=== PATIENT | female | born 1930 | race Caucasian/White ===

== ENCOUNTER → 2016-12-01 | Outpatient (CLI) | payer MEDICARE, BC ==
[~2016-12-01] MED LIST: ASPIRN; BYST10TA2 PO; CEPHALEXIN; CLON0.5T PO; KCL20 PO; PROPRANOLOL; VALSARTAN/HCTZ
[2016-12-01 13:24] LABS: AUTOMATED NEUTROPHIL # 2.3 TH/MM3 (1.8-7.7); BASOPHIL % 0.6 % (0.0-2.0); EOSINOPHIL # 0.1 TH/MM3 (0-0.4); HEMATOCRIT 42.6 % (35.0-46.0); HEMO FLAGS DIFF FINAL; LYMPH % 29.1 % (9.0-44.0); LYMPHOCYTE # 1.1 TH/MM3 (1.0-4.8); MEAN CELL VOLUME 92.3 FL (80.0-100.0); MEAN CORPUSCULAR HEMOGLOBIN 31.1 PG (27.0-34.0); MEAN CORPUSCULAR HGB CONC 33.7 % (32.0-36.0); MONO % 8.8 % (0.0-8.0); NEUT % 59.5 % (16.0-70.0); PLATELET COUNT 128 TH/MM3 (150-450); RED BLOOD COUNT 4.61 MIL/MM3 (4.00-5.30); RED CELL DISTRIBUTION WIDTH 13.5 % (11.6-17.2); WHITE BLOOD COUNT 3.9 TH/MM3 (4.0-11.0)
[2016-12-01 14:02] LABS: ALKALINE PHOSPHATASE 91 U/L (45-117); ALT (GPT) 15 U/L (10-53); ANION GAP 7 MEQ/L (5-15); AST (GOT) 16 U/L (15-37); BLOOD UREA NITROGEN 10 MG/DL (7-18); CHLORIDE 104 MEQ/L (98-107); GLOMERULAR FILTRATION RATE 80 ML/MIN (>89); GLUCOSE,FASTING 119 MG/DL (74-99); HDL CHOLESTEROL 63.5 MG/DL (40.0-60.0); LDL CHOLESTEROL 98 MG/DL (0-99); POTASSIUM 4.6 MEQ/L (3.5-5.1); SODIUM (NA) 143 MEQ/L (136-145); TOTAL BILIRUBIN ADULT 1.2 MG/DL (0.2-1.0)
[2016-12-01 14:08] LABS: HEMOGLOBIN A1a 0.6 %; HEMOGLOBIN A1b 1.5 %; HEMOGLOBIN Ao 86.2 %; HEMOGLOBIN P3 3.5 %
== END ==
LOC: PLAB 08:17
PROVIDERS: ATTEND Family Medicine
DX: I10 Essential (primary) hypertension (principal); R53.81 Other malaise; R73.01 Impaired fasting glucose; E78.4 Other hyperlipidemia
CPT/HCPCS: 36415; 80053; 80061; 83036; 84443; 85025

== ENCOUNTER 2017-09-17 14:54 | Emergency (ER) | payer MEDICARE, BC ==
[~2017-09-17] VITALS: Ht 165.1 cm; Wt 73.0 kg
[2017-09-17 14:57] VITALS: BP 149/76; PULSE 75; RESP 16; TEMP 98.2; O2SAT 98
[2017-09-17 15:18] LABS: BLOOD, URINE TRACE (NEG); GLUCOSE,URINE NEG (NEG); KETONE, URINE NEG (NEG); NITRITE,URINE NEG (NEG); PH, URINE 6.5 (5.0-8.5)
[2017-09-17 15:23] LABS: RBC, URINE 0-3 /hpf (0-3); URINE COLOR YELLOW (YELLW/STRAW); WBC, URINE 0-2 /hpf (0-5)
[2017-09-17] MEDS ORDERED: PROP10TA6 PO (15:23)
[2017-09-17] MEDS ORDERED: CLON0.5T PO (15:23)
[2017-09-17] MEDS ORDERED: KLOR10TA PO (15:23)
[2017-09-17] MEDS ORDERED: BYST10TA2 PO (15:23)
[2017-09-17] MEDS ORDERED: VALS320T6 PO (15:23)
[2017-09-17 15:24] LABS: COMMENT (UR) CULT NOT INDICATED; CULTURE IF INDICATED CULT NOT INDICATED
[2017-09-17] MEDS ORDERED: SODIUM CHLORIDE 0.9% FLUSH 10 ML FLUSH IV FLUSH PRN (15:30)
[2017-09-17 15:39] LABS: AUTOMATED NEUTROPHIL # 5.5 TH/MM3 (1.8-7.7); BASOPHIL % 0.3 % (0.0-2.0); EOSINOPHIL # 0.1 TH/MM3 (0-0.4); EOSINOPHIL % 1.5 % (0.0-4.0); HEMATOCRIT 39.8 % (35.0-46.0); HEMO FLAGS DIFF FINAL; LYMPH % 14.2 % (9.0-44.0); LYMPHOCYTE # 1.1 TH/MM3 (1.0-4.8); MEAN CELL VOLUME 90.9 FL (80.0-100.0); MEAN CORPUSCULAR HEMOGLOBIN 30.4 PG (27.0-34.0); MEAN CORPUSCULAR HGB CONC 33.4 % (32.0-36.0); MONO % 9.3 % (0.0-8.0); NEUT % 74.7 % (16.0-70.0); PLATELET COUNT 242 TH/MM3 (150-450); RED BLOOD COUNT 4.38 MIL/MM3 (4.00-5.30); RED CELL DISTRIBUTION WIDTH 12.4 % (11.6-17.2); WHITE BLOOD COUNT 7.4 TH/MM3 (4.0-11.0)
--- NOTE | 2017-09-17 15:59 | PD ---
HPI Chief Complaint: Complaint Time Seen by Provider: 15:14 Travel History International Travel<30 days: No Contact w/Intl Traveler<30days: No Traveled to known affect area: No History of Present Illness HPI Patient is an 87-year-old female presents to emergency department for evaluation of dysuria. Patient states been going on for the past week. 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 Dr. Maldonado did this in 2011. Patient also states she's been feeling weak having intermittent chills. States that she went to her primary care physician and was put on Macrobid and still is having the dysuria. Has not followed up with Dr. Maldonado nor urologist in this time. States some minimal super pubic abdominal discomfort. No vaginal discharge no vaginal bleeding. PFSH Past Medical History Hx Anticoagulant Therapy: Yes (BABY ASA DAILY) Arthritis: Yes Cancer: Yes (SKIN CANCER) Cardiovascular Problems: Yes (HTN) Chemotherapy: No Diabetes: Yes (BORDERLINE) Patient Takes Glucophage: No Diminished Hearing: No Endocrine: No Gastrointestinal Disorders: Yes GERD: Yes Glaucoma: No Genitourinary: Yes (CHRONIC BLADDER INFECTIONS) Hepatitis: No Hiatal Hernia: Yes Hypertension: Yes Immune Disorder: No Implanted Vascular Access Dvce: Yes Kidney Stones: Yes Medical other: No Musculoskeletal: No Neurologic: No Psychiatric: No Reproductive: No Respiratory: No Immunizations Current: Yes Radiation Therapy: No Thyroid Disease: No ?: Not Past Surgical History Abdominal Surgery: Yes (UMBILICAL HERNIA, COLON SURGERY) AICD: No Body Medical Devices: MICHAEL EYE LENS Cardiac Surgery: No Cholecystectomy: Yes Ear Surgery: No Endocrine Surgery: No Eye Surgery: No Genitourinary Surgery: No Gynecologic Surgery: No Joint Replacement: No Neurologic Surgery: No Oral Surgery: No Pacemaker: No Thoracic Surgery: No Other Surgery: Yes (HERNIA REPAIR) Social History Alcohol Use: Yes (scotch and h20 one daily) Tobacco Use: No Substance Use: No Allergies-Medications (Allergen,Severity, Reaction): Coded Allergies: No Known Allergies (Verified Adverse Reaction, Unknown, 09/17/17) Reported Meds & Prescriptions Reported Meds & Active Scripts Active Pyridium (Phenazopyridine HCl) 100 Mg Tab 100 Mg PO Q8H PRN Reported Bystolic (Nebivolol) 10 Mg Tab 10 Mg PO DAILY Klor-Con 10 (Potassium Chloride) 10 Meq Tab 10 Meq PO BID Clonazepam 0.5 Mg Tab 0.5 Mg PO BID Valsartan-Hydrochlorothiazide 320-25 Mg Tab 1 Tab PO DAILY Propranolol (Propranolol HCl) 10 Mg Tab 30 Mg PO DAILY Review of Systems Except as stated in HPI: all other systems reviewed are Neg Physical Exam Narrative GENERAL: Well-developed well-nourished no obvious distress. Has a stuttering speech pattern which she states been present all of her life. SKIN: Focused skin assessment warm/dry. HEAD: Atraumatic. Normocephalic. EYES: Pupils equal and round. No scleral icterus. No injection or drainage. ENT: No nasal bleeding or discharge. Mucous membranes pink and moist. NECK: Trachea midline. No JVD. CARDIOVASCULAR: Regular rate and rhythm. No murmur appreciated. RESPIRATORY: No accessory muscle use. Clear to auscultation. Breath sounds equal bilaterally. GASTROINTESTINAL: Abdomen soft, non-tender, nondistended. Hepatic and splenic margins not palpable. No rebound no percussive tenderness, no tenderness suprapubic region MUSCULOSKELETAL: No obvious deformities. No clubbing. No cyanosis. No edema. NEUROLOGICAL: Awake and alert. No obvious cranial nerve deficits. Motor grossly within normal limits. Abnormal speech as above. PSYCHIATRIC: Appropriate mood and affect; insight and judgment normal. Data Data Last Documented VS Vital Signs Date Time Temp Pulse Resp B/P (MAP) Pulse Ox O2 Delivery O2 Flow Rate FiO2 09/17/17 15:12 16 09/17/17 14:57 98.2 75 149/76 (100) 98 Orders Orders Urinalysis - C+S If Indicated (09/17/17 15:03) Complete Blood Count With Diff (09/17/17 15:24) Comprehensive Metabolic Panel (09/17/17 15:24) Iv Access Insert/Monitor (09/17/17 15:24) Sodium Chloride 0.9% Flush (Ns Flush) (09/17/17 15:30) Ed Discharge Order (09/17/17 16:16) Labs Laboratory Tests Test 09/17/17 15:09 09/17/17 15:33 Urine Color YELLOW Urine Turbidity CLEAR Urine pH 6.5 Urine Specific [place] 1.006 Urine Protein NEG mg/dL Urine Glucose (UA) NEG mg/dL Urine Ketones NEG mg/dL Urine Occult Blood TRACE Urine Nitrite NEG Urine Bilirubin NEG Urine Leukocyte Esterase NEG Urine RBC 0-3 /hpf Urine WBC 0-2 /hpf Urine Squamous Epithelial Cells 6-8 /hpf Microscopic Urinalysis Comment CULT NOT INDICATED White Blood Count 7.4 TH/MM3 Red Blood Count 4.38 MIL/MM3 Hemoglobin 13.3 GM/DL Hematocrit 39.8 % Mean Corpuscular Volume 90.9 FL Mean Corpuscular Hemoglobin 30.4 PG Mean Corpuscular Hemoglobin Concent 33.4 % Red Cell Distribution Width 12.4 % Platelet Count 242 TH/MM3 Mean Platelet Volume 6.6 FL Neutrophils (%) (Auto) 74.7 % Lymphocytes (%) (Auto) 14.2 % Monocytes (%) (Auto) 9.3 % Eosinophils (%) (Auto) 1.5 % Basophils (%) (Auto) 0.3 % Neutrophils # (Auto) 5.5 TH/MM3 Lymphocytes # (Auto) 1.1 TH/MM3 Monocytes # (Auto) 0.7 TH/MM3 Eosinophils # (Auto) 0.1 TH/MM3 Basophils # (Auto) 0.0 TH/MM3 CBC Comment DIFF FINAL Differential Comment Blood Urea Nitrogen 6 MG/DL Creatinine 0.57 MG/DL Random Glucose 113 MG/DL Total Protein 6.6 GM/DL Albumin 3.1 GM/DL Calcium Level 8.7 MG/DL Alkaline Phosphatase 114 U/L Aspartate Amino Transf (AST/SGOT) 16 U/L Alanine Aminotransferase (ALT/SGPT) 20 U/L Total Bilirubin 0.9 MG/DL Sodium Level 134 MEQ/L Potassium Level 3.7 MEQ/L Chloride Level 96 MEQ/L Carbon Dioxide Level 33.1 MEQ/L Anion Gap 5 MEQ/L Estimat Glomerular Filtration Rate 100 ML/MIN [facility] Medical Decision Making Medical Screen Exam Complete: Yes Emergency Medical Condition: Yes Differential Diagnosis UTI, pyelonephritis unlikely, sepsis unlikely, bladder spasm. Narrative Course Patient roomed emergency department, appears well and in no distress. Basic labs are reassuring, UA is also reassuring. As possible that she is having some residual bladder irritation. With her history of enterovesicular fistula had recommended that she follow up with Dr. Maldonado her surgeon for another evaluation. Also recommend that she follow up with her urologist for consideration of cystoscopy. However both these can be done outpatient and she appears well and in no distress. Recommended finishing her antibiotics if there is any left and follow-up with Dr. Marx by phone today. She stable for discharge discussed return to ED criteria. Diagnosis Primary Impression: Dysuria Referrals: Umang Maldonado MD,Rochelle CLAROS Patient Instructions: Dysuria (GEN), General Instructions Med/Other Pt SpecificInfo: Prescription(s) given Scripts Phenazopyridine (Pyridium) 100 Mg Tab 100 MG PO Q8H Y for DYSURIA, #20 TAB 0 Refills Prov: Tony Xavier MD 09/17/17 Disposition: 01 DISCHARGE HOME Condition: Stable Tony Xavier MD Sep 17, 2017 15:59
[2017-09-17 16:00] LABS: CHLORIDE 96 MEQ/L (98-107); POTASSIUM 3.7 MEQ/L (3.5-5.1); SODIUM (NA) 134 MEQ/L (136-145)
[2017-09-17 16:04] LABS: ANION GAP 5 MEQ/L (5-15); BICARBONATE 33.1 MEQ/L (21.0-32.0); BLOOD UREA NITROGEN 6 MG/DL (7-18)
[2017-09-17 16:07] LABS: ALT (GPT) 20 U/L (10-53); AST (GOT) 16 U/L (15-37); GLOMERULAR FILTRATION RATE 100 ML/MIN (>89)
[2017-09-17 16:08] LABS: TOTAL BILIRUBIN ADULT 0.9 MG/DL (0.2-1.0)
[2017-09-17 16:09] LABS: ALKALINE PHOSPHATASE 114 U/L (45-117)
[2017-09-17] MEDS ORDERED: PHEN0.4T PO (16:16)
== END 2017-09-17 16:36 | disposition home or self-care (01) ==
LOC: PHED 14:54
DX: R30.0 Dysuria (principal); I10 Essential (primary) hypertension; Z87.442 Personal history of urinary calculi; Z79.82 Long term (current) use of aspirin
CPT/HCPCS: 80053; 81001; 85025; 99283

== ENCOUNTER 2018-01-03 15:00 | Emergency (ER) | payer MEDICARE, BC ==
[~2018-01-03] VITALS: Ht 165.1 cm; Wt 73.1 kg
[~2018-01-03 15:00] MED LIST changes: -ASPIRN; -CEPHALEXIN; -KCL20 PO; +KLOR10TA PO; +PHEN0.4T PO; +PROP10TA6 PO; -PROPRANOLOL; +VALS320T6 PO; -VALSARTAN/HCTZ
[2018-01-03 15:29] VITALS: BP 115/73; PULSE 70; RESP 16; TEMP 98.3; O2SAT 93
--- NOTE | 2018-01-03 17:11 | PD ---
HPI Chief Complaint: Syncope/Near-Syncope Time Seen by Provider: 16:56 Travel History International Travel<30 days: No Contact w/Intl Traveler<30days: No Traveled to known affect area: No History of Present Illness HPI 87-year-old female complains of syncope and left-sided facial injury. Patient states that she was walking and then passed out completely. Patient states that she does not know how long she passed out. Patient states that just a short moment. Patient denies any headache. Patient complains of abrasion the left side of face. Patient denies any visual change. Patient denies any neck pain. Patient denies any chest pain shortness of breath. Patient denies abdominal pain. Patient denies any focal weakness or numbness of the extremity. Patient states that she had a syncopal episode about 2 years ago. 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 Patient take aspirin daily. Patient has history of hypertension and diet-controlled diabetes. Patient denies any history of hyperlipidemia. Patient is non-smoker. Patient denies history of CVA. Patient denies history of seizure. Patient states that she has been eating well. Patient denies any palpitation prior to syncope. Patient states that she is up-to-date with TD booster. PFSH Past Medical History Hx Anticoagulant Therapy: Yes (asa 81mg) Arthritis: Yes Cancer: Yes (SKIN CANCER) Cardiovascular Problems: Yes (htn on meds) Chemotherapy: No Diabetes: Yes (type 2) Diminished Hearing: No Endocrine: No Gastrointestinal Disorders: Yes GERD: Yes Glaucoma: No Genitourinary: Yes (CHRONIC BLADDER INFECTIONS) Hepatitis: No Hiatal Hernia: Yes Hypertension: Yes Immune Disorder: No Implanted Vascular Access Dvce: Yes Kidney Stones: Yes Musculoskeletal: No Neurologic: No Psychiatric: No Reproductive: No Respiratory: No Immunizations Current: Yes Radiation Therapy: No Thyroid Disease: No ?: Not Past Surgical History Abdominal Surgery: Yes (UMBILICAL HERNIA, COLON SURGERY) AICD: No Body Medical Devices: MICHAEL EYE LENS Cardiac Surgery: No Cholecystectomy: Yes Ear Surgery: No Endocrine Surgery: No Eye Surgery: No Genitourinary Surgery: No Gynecologic Surgery: No Joint Replacement: No Neurologic Surgery: No Oral Surgery: No Pacemaker: No Thoracic Surgery: No Other Surgery: Yes (HERNIA REPAIR) Social History Alcohol Use: Yes (scotch and h20 one daily) Tobacco Use: No Substance Use: No Allergies-Medications (Allergen,Severity, Reaction): Coded Allergies: No Known Allergies (Verified Adverse Reaction, Unknown, 01/03/18) Reported Meds & Prescriptions Reported Meds & Active Scripts Active Reported Aspirin 81 Mg Chew 81 Mg CHEW DAILY Bystolic (Nebivolol) 10 Mg Tab 10 Mg PO DAILY Klor-Con 10 (Potassium Chloride) 10 Meq Tab 10 Meq PO BID Clonazepam 0.5 Mg Tab 0.5 Mg PO BID Valsartan-Hydrochlorothiazide 320-25 Mg Tab 1 Tab PO DAILY Propranolol (Propranolol HCl) 10 Mg Tab 30 Mg PO DAILY Review of Systems General / Constitutional: No: Fever Eyes: No: Visual changes HENT: No: Headaches Cardiovascular: No: Chest Pain or Discomfort Respiratory: No: Shortness of Breath Gastrointestinal: No: Abdominal Pain Genitourinary: No: Dysuria Musculoskeletal: No: Pain Skin: No Rash Neurologic: Positive: Syncope, No: Weakness Psychiatric: No: Depression Endocrine: No: Polydipsia Hematologic/Lymphatic: No: Easy Bruising Physical Exam Narrative GENERAL: Well-nourished, well-developed patient. SKIN: Focused skin assessment warm/dry. HEAD: Normocephalic. Patient has small abrasion to left cheek area. Mild soft tissue swelling tenderness on palpation of the left cheek. EYES: No scleral icterus. No injection or drainage. Pupils 1.5 mm equal reactive. NECK: Supple, trachea midline. No JVD or lymphadenopathy. No neck tenderness on palpation. CARDIOVASCULAR: Regular rate and rhythm without murmurs, gallops, or rubs. RESPIRATORY: Breath sounds equal bilaterally. No accessory muscle use. GASTROINTESTINAL: Abdomen soft, non-tender, nondistended. MUSCULOSKELETAL: No cyanosis, or edema. BACK: Nontender without obvious deformity. No CVA tenderness. Neurologic exam: Patient is awake and alert oriented 3. Patient moves all extremity well. No obvious focal neurological deficit. Data Data Last Documented VS Vital Signs Date Time Temp Pulse Resp B/P (MAP) Pulse Ox O2 Delivery O2 Flow Rate FiO2 01/03/18 15:29 98.3 70 16 115/73 (87) 93 Orders Orders Electrocardiogram (01/03/18 17:04) Complete Blood Count With Diff (01/03/18 17:04) Comprehensive Metabolic Panel (01/03/18 17:04) Prothrombin Time / Inr (Pt) (01/03/18 17:04) Act Partial Throm Time (Ptt) (01/03/18 17:04) Urinalysis - C+S If Indicated (01/03/18 17:04) Thyroid Stimulating Hormone (01/03/18 17:04) Chest, Single Ap (01/03/18 17:04) Ct Brain W/O Iv Contrast(Rout) (01/03/18 17:04) Iv Access Insert/Monitor (01/03/18 17:04) Ecg Monitoring (01/03/18 17:04) Oximetry (01/03/18 17:04) Ct Facial Bones W/O Iv Cont (01/03/18 17:04) Urine Culture (01/03/18 18:20) Labs Laboratory Tests Test 01/03/18 17:41 01/03/18 18:20 White Blood Count 5.8 TH/MM3 Red Blood Count 4.96 MIL/MM3 Hemoglobin 15.2 GM/DL Hematocrit 45.3 % Mean Corpuscular Volume 91.5 FL Mean Corpuscular Hemoglobin 30.6 PG Mean Corpuscular Hemoglobin Concent 33.5 % Red Cell Distribution Width 13.9 % Platelet Count 160 TH/MM3 Mean Platelet Volume 7.8 FL Neutrophils (%) (Auto) 57.4 % Lymphocytes (%) (Auto) 32.8 % Monocytes (%) (Auto) 8.2 % Eosinophils (%) (Auto) 1.1 % Basophils (%) (Auto) 0.5 % Neutrophils # (Auto) 3.3 TH/MM3 Lymphocytes # (Auto) 1.9 TH/MM3 Monocytes # (Auto) 0.5 TH/MM3 Eosinophils # (Auto) 0.1 TH/MM3 Basophils # (Auto) 0.0 TH/MM3 CBC Comment DIFF FINAL Differential Comment Prothrombin Time 10.7 SEC Prothromb Time International Ratio 1.1 RATIO Activated Partial Thromboplast Time 25.9 SEC Blood Urea Nitrogen 14 MG/DL Creatinine 0.64 MG/DL Random Glucose 96 MG/DL Total Protein 6.3 GM/DL Albumin 3.4 GM/DL Calcium Level 8.9 MG/DL Alkaline Phosphatase 93 U/L Aspartate Amino Transf (AST/SGOT) 23 U/L Alanine Aminotransferase (ALT/SGPT) 24 U/L Total Bilirubin 1.2 MG/DL Sodium Level 140 MEQ/L Potassium Level 3.8 MEQ/L Chloride Level 103 MEQ/L Carbon Dioxide Level 28.3 MEQ/L Anion Gap 9 MEQ/L Estimat Glomerular Filtration Rate 88 ML/MIN Thyroid Stimulating Hormone 3rd Gen 1.210 uIU/ML Urine Color YELLOW Urine Turbidity CLEAR Urine pH 5.0 Urine Specific [place] 1.020 Urine Protein NEG mg/dL Urine Glucose (UA) NEG mg/dL Urine Ketones NEG mg/dL Urine Occult Blood TRACE Urine Nitrite NEG Urine Bilirubin NEG Urine Urobilinogen 0.2 MG/DL Urine Leukocyte Esterase TRACE Urine RBC 3-5 /hpf Urine WBC 6-8 /hpf Urine Squamous Epithelial Cells > 8 /hpf Urine Bacteria MOD /hpf Microscopic Urinalysis Comment CULTURE INDICATED MDM Medical Decision Making Medical Screen Exam Complete: Yes Emergency Medical Condition: Yes Interpretation(s) Last Impressions Maxillofacial CT 01/03/181703 Signed Impressions: Service Date/Time: December 17:43 - CONCLUSION: 1. No acute facial bone fractures. 2. Left maxillary sinus mucosal disease. David Tompkins MD Head CT 01/03/181703 Signed Impressions: Service Date/Time: December 17:43 - CONCLUSION: 1. Senescent changes without acute intracranial abnormality. David Tompkins MD Chest X-Ray 01/03/181703 Signed Impressions: Service Date/Time: December 17:14 - CONCLUSION: No acute disease. Clement Youssef MD 1842 PM. CBC within normal limits. CMP within normal limits. UA positive WBC and bacteria. EKG shows sinus rhythm nonspecific ST-T wave change. Differential Diagnosis Differential diagnosis including vasovagal reaction, arrhythmia, electrolyte imbalance, dehydration, TIA, CVA. Narrative Course 87-year-old female with syncope and left-sided facial injury. Bactrim DS, 1 tablet p.o. given. Diagnosis Primary Impression: Syncope Qualified Codes: R55 - Syncope and collapse Additional Impressions: Facial abrasion Qualified Codes: S00.81XA - Abrasion of other part of head, initial encounter UTI (urinary tract infection) Qualified Codes: N30.00 - Acute cystitis without hematuria Patient Instructions: General Instructions Additional Instructions: Bactrim DS as directed. Polysporin ointment daily to the face. Follow-up with personal physician. Return as needed. Med/Other Pt SpecificInfo: Prescription(s) given Scripts Sulfamethoxazole-Trimethoprim (Bactrim DS) 800-160 Mg Tab 1 TAB PO BID for Infection, #6 TAB 0 Refills Prov: Javy Roper MD 01/03/18 Disposition: 01 DISCHARGE HOME Condition: Stable Javy Roper MD Jan 03, 2018 17:11
[2018-01-03] MEDS ORDERED: ASPI-516 CHEW (17:26)
--- NOTE | 2018-01-03 17:31 | RADRPT ---
EXAM DATE/TIME: 01/03/2018 17:14 [facility] COMPARISON: No previous studies available for comparison. INDICATIONS : Possible syncopal episode; fall. MEDICAL HISTORY : Hypertension. Diabetes mellitus type II. SURGICAL HISTORY : None. ENCOUNTER: Initial ACUITY: 1 day PAIN SCORE: 0/10 LOCATION: Bilateral chest FINDINGS: A single view of the chest demonstrates the lungs to be symmetrically aerated without evidence of mas s, infiltrate or effusion. The cardiomediastinal contours are unremarkable. Osseous structures are intact. CONCLUSION: No acute disease. Clement Youssef MD on January 03, 2018 at 17:29 Board Certified Radiologist. This report was verified electronically.
[2018-01-03 17:45] VITALS: O2SAT 96
[2018-01-03 17:49] LABS: AUTOMATED NEUTROPHIL # 3.3 TH/MM3 (1.8-7.7); BASOPHIL % 0.5 % (0.0-2.0); EOSINOPHIL # 0.1 TH/MM3 (0-0.4); EOSINOPHIL % 1.1 % (0.0-4.0); HEMATOCRIT 45.3 % (35.0-46.0); HEMOGLOBIN 15.2 GM/DL (11.6-15.3); LYMPH % 32.8 % (9.0-44.0); LYMPHOCYTE # 1.9 TH/MM3 (1.0-4.8); MEAN CELL VOLUME 91.5 FL (80.0-100.0); MEAN CORPUSCULAR HEMOGLOBIN 30.6 PG (27.0-34.0); MEAN CORPUSCULAR HGB CONC 33.5 % (32.0-36.0); MEAN PLATELET VOLUME 7.8 FL (7.0-11.0); MONO % 8.2 % (0.0-8.0); MONOCYTE # 0.5 TH/MM3 (0-0.9); NEUT % 57.4 % (16.0-70.0); PLATELET COUNT 160 TH/MM3 (150-450); RED BLOOD COUNT 4.96 MIL/MM3 (4.00-5.30); RED CELL DISTRIBUTION WIDTH 13.9 % (11.6-17.2); WHITE BLOOD COUNT 5.8 TH/MM3 (4.0-11.0)
--- NOTE | 2018-01-03 17:59 | RADRPT ---
EXAM DATE/TIME: 01/03/2018 17:43 [facility] COMPARISON: No previous studies available for comparison. INDICATIONS : Fall. Syncopal episode. Cephalgia. Left facial abrasion. RADIATION DOSE: 58.08 CTDIvol (mGy) MEDICAL HISTORY : Hypertension. SURGICAL HISTORY : Umbilical hernia repair. Cholecystectomy.Hiatal hernia repair. ENCOUNTER: Initial ACUITY: 1 day PAIN SCALE: 4/10 LOCATION: cranial TECHNIQUE: Multiple contiguous axial images were obtained of the head. Using automated exposure control and adj ustment of the mA and/or kV according to patient size, radiation dose was kept as low as reasonably a chievable to obtain optimal diagnostic quality images. DICOM format image data is available electro nically for review and comparison. FINDINGS: CEREBRUM: Moderate diffuse cerebral volume loss. The ventricles are normal for age. No evidence of midline brandyn ft, mass lesion, hemorrhage or acute infarction. No extra-axial fluid collections are seen. POSTERIOR FOSSA: The cerebellum and brainstem are intact. The 4th ventricle is midline. The cerebellopontine angle i s unremarkable. EXTRACRANIAL: The visualized portion of the orbits is intact. SKULL: The calvaria is intact. No evidence of skull fracture. CONCLUSION: 1. Senescent changes without acute intracranial abnormality. David Tompkins MD on January 03, 2018 at 17:56 Board Certified Radiologist. This report was verified electronically.
--- NOTE | 2018-01-03 18:02 | RADRPT ---
EXAM DATE/TIME: 01/03/2018 17:43 [facility] COMPARISON: No previous studies available for comparison. INDICATIONS : Fall. Syncopal episode. Cephalgia. Left facial abrasion. RADIATION DOSE: 34.83 CTDIvol (mGy) MEDICAL HISTORY : Hypertension. SURGICAL HISTORY : Umbilical hernia repair. Cholecystectomy.Hiatal hernia repair. ENCOUNTER: Initial ACUITY: 1 day PAIN SCORE: 7/10 LOCATION: Left facial TECHNIQUE: Volumetric scanning of the facial bones was performed. Using automated exposure control and adjustme nt of the mA and/or kV according to patient size, radiation dose was kept as low as reasonably achiev able to obtain optimal diagnostic quality images. DICOM format image data is available electronicall y for review and comparison. FINDINGS: ORBITS: The orbital and infraorbital osseous structures are intact. The retroconal structures have a normal configuration. No radiopaque foreign bodies are seen. NASAL BONE: The nasal bone and maxillary spine are intact ZYGOMATIC ARCHES: Symmetric without evidence of fracture. SINUSES: The maxillary, ethmoid and frontal sinuses are intact. Small because retention cyst in the infer ior left maxillary sinus. No air-fluid levels seen. NASAL CAVITY: The nasal septum is intact and midline. The lacrimal ducts are intact. SOFT TISSUES: No radiopaque foreign bodies seen. No soft-tissue swelling is seen. INTRACRANIAL: No intracranial air seen. CRIBIFORM PLATE: Grossly intact. CONCLUSION: 1. No acute facial bone fractures. 2. Left maxillary sinus mucosal disease. David Tompkins MD on January 03, 2018 at 17:57 Board Certified Radiologist. This report was verified electronically.
[2018-01-03 18:18] LABS: CHLORIDE 103 MEQ/L (98-107); SODIUM (NA) 140 MEQ/L (136-145)
[2018-01-03 18:21] LABS: CALCIUM 8.9 MG/DL (8.5-10.1); INTERNATIONAL NORMALIZED RATIO 1.1 RATIO; PROTHROMBIN TIME - PATIENT 10.7 SEC (9.8-11.6)
[2018-01-03 18:22] LABS: ALBUMIN 3.4 GM/DL (3.4-5.0); BICARBONATE 28.3 MEQ/L (21.0-32.0); BLOOD UREA NITROGEN 14 MG/DL (7-18); GLUCOSE,RANDOM 96 MG/DL (74-106)
[2018-01-03 18:24] LABS: BILIRUBIN, URINE NEG (NEG); BLOOD, URINE TRACE (NEG); GLUCOSE,URINE NEG (NEG); KETONE, URINE NEG (NEG); NITRITE,URINE NEG (NEG); URINE COLOR YELLOW (YELLW/STRAW); URINE LEUKOCYTE ESTERASE TRACE (NEG)
[2018-01-03 18:25] LABS: ALT (GPT) 24 U/L (10-53); AST (GOT) 23 U/L (15-37); CREATININE 0.64 MG/DL (0.50-1.00); GLOMERULAR FILTRATION RATE 88 ML/MIN (>89)
[2018-01-03 18:27] LABS: TOTAL BILIRUBIN ADULT 1.2 MG/DL (0.2-1.0); TOTAL PROTEIN 6.3 GM/DL (6.4-8.2)
[2018-01-03 18:28] LABS: ALKALINE PHOSPHATASE 93 U/L (45-117)
[2018-01-03 18:30] LABS: BACTERIA, URINE MOD /hpf; SQUAMOUS EPITHELIAL CELL URINE > 8 /hpf (0-5)
[2018-01-03] MEDS ORDERED: BACT800T5 PO (18:46)
[2018-01-03] MEDS ORDERED: SULFAMETHOXAZOLE-TRIMETHOPRIM DS 800-160 MG TAB PO ONE (19:00)
[2018-01-03 19:18] VITALS: BP 157/77
--- NOTE | 2018-01-03 23:46 | EKG ---
Date Performed: 01/03/2018 Time Performed: 17:29:57 PTAGE: 87 years EKG: Sinus rhythm MODERATE INTRAVENTRICULAR CONDUCTION DELAY MINIMAL ST DEPRESSION ABNORMAL ECG PREVIOUS TRACING : 04/18/2012 07.27 Since the prior tracing, now in sinus rhythm DOCTOR: Jatin Metzger Interpretating Date/Time 01/03/2018 23:45:00
== END 2018-01-03 19:18 | disposition home or self-care (01) ==
LOC: PHED 15:00
DX: R55 Syncope and collapse (principal); S00.81XA Abrasion of other part of head, initial encounter; N30.00 Acute cystitis without hematuria; I10 Essential (primary) hypertension; R94.31 Abnormal electrocardiogram [ECG] [EKG]; E11.9 Type 2 diabetes mellitus without complications; M19.90 Unspecified osteoarthritis, unspecified site; W18.39XA Other fall on same level, initial encounter; K21.9 Gastro-esophageal reflux disease without esophagitis; Y93.01 Activity, walking, marching and hiking; Z85.828 Personal history of other malignant neoplasm of skin; Z87.442 Personal history of urinary calculi; Z79.82 Long term (current) use of aspirin; Z79.899 Other long term (current) drug therapy
CPT/HCPCS: 70450; 70486; 71045; 80053; 81001; 84443; 85025; 85610; 85730; 87086; 93005; 99285